=== PATIENT | male | born 1995 | race Caucasian/White ===

== ENCOUNTER 2017-02-03 17:24 | Emergency (ER) | payer SELFPAY ==
[~2017-02-03 17:24] MED LIST: ABX FOR ACNE; ABX FOR ACNE PO; GROWTH HORMONE
== END 2017-02-03 17:50 | disposition left against medical advice (07) ==
LOC: EDMED 17:24
DX: R11.2 Nausea with vomiting, unspecified (principal); Z53.29 Procedure and treatment not carried out because of patient's decision for other reasons